=== PATIENT | male | born 1990 | race Caucasian/White ===

== ENCOUNTER 2021-04-23 17:31 | Emergency (ER) | payer MEDICAID, SELFPAY ==
--- NOTE | ~2021-04-23 | XR_ITS ---
EXAMINATION: XR HAND, RIGHT CLINICAL INFORMATION: Laceration injury to hand COMPARISON: None TECHNIQUE: PA, lateral, and oblique views of the right hand. FINDINGS: Soft tissue defect seen along the region of the fifth metacarpal. I do not appreciate any underlying fracture or dislocation. No radiopaque foreign body seen. XR/XR hand RT min 3V IMPRESSION: Soft tissue irregularity near the fifth metacarpal but no acute underlying bony abnormality.
[2021-04-23 17:53] VITALS: BP 138/97; PULSE 69; RESP 16; TEMP 37.3; O2SAT 96; BMI 26.6
[2021-04-23] MEDS: Lidocaine HCl 1 % 20 ML VIAL 10 ML INFILTRATI (18:51)
--- NOTE | 2021-04-23 19:06 | ED_ITS ---
HPI - Wound/Laceration General Chief Complaint: Wound/Laceration Stated Complaint: hand lac Time Seen by Provider: 04/23/21 18:42 Source: patient Mode of arrival: ambulatory Limitations: no limitations History of Present Illness HPI narrative: 30-year-old male presents with right palmar hand laceration that occurred just prior to arrival while he was using a hand powered saw. He pushed on the saw to jam it through the wood and cut his hand. States he is up-to-date on his tetanus. No numbness or tingling, patient has full range of motion of his fingers. Onset (ago): hour(s) (1) Extremity Location: right: hand Place: home Patient tetanus UTD: Yes Context: accidental Associated symptoms: pain Related Data Allergies Allergy/AdvReac Type Severity Reaction Status Date / Time amoxicillin Allergy Unknown hives Verified 04/23/21 18:40 gluten sensitivity Allergy Unknown skin rash Uncoded 08/09/19 00:00 Review of Systems Review of Systems: Constitutional : No Weight loss, No Fever, No Chills, No Night Sweats,No Fatigue, No Malaise ENT/Mouth : No Hearing loss, No Ear Pain, No Nasal Congestion, NoSinus Pain, No Hoarseness, No sore throat, No Rhinorrhea, NoSwallowing Difficulty Eyes: No Eye Pain, No Swelling, No Redness, No Foreign Body, NoDischarge, No Vision Changes Cardiovascular : No Chest Pain, No SOB, No Dyspnea on Exertion, NoOrthopnea, No Edema, No Palpitations Respiratory : No Cough, No Sputum, No Wheezing, No Smoke Exposure, No Dyspnea Gastrointestinal : No Nausea, No Vomiting, No Diarrhea, NoConstipation, No abdominal Pain, No Hematochezia, No Melena Genitourinary : no irregular bleeding, No Dysuria, No UrinaryFrequency, No Hematuria, No Urinary Incontinence, No Urgency, No FlankPain, No Urinary Flow Changes, No Hesitancy Musculoskeletal : No joint pain, No Myalgias, No Joint Swelling Skin :laceration right hand Neuro : No Weakness, No Numbness, No Paresthesias, No Loss ofConsciousness, No Dizziness, No Headache PMFSH Social History Social History Advance Directives: No Advance Directives Information Provided: No Physical Exam Vital Signs: Vital Signs: Last Vital Signs Temp 98.3 F 04/23/21 19:22 Pulse 66 04/23/21 19:22 Resp 16 04/23/21 19:22 BP 128/79 04/23/21 19:22 Pulse Ox 98 04/23/21 19:22 Body Mass Index 26.6 Const: General: cooperative, no acute distress, well developed, alert and awake Nutritional Appearance: well nourished Orientation/consciousness: patient oriented x3 Limitations: no limitations Eyes: Pupils: Equal, round and reactive pupils present Resp: Effort & Inspection: normal respiratory effort and able to speak in complete sentences Auscultation: clear to auscultation bilaterally, no crackles, no rales, no rhonchi and no wheezes Cardio: Rate: regular rate Rhythm: regular rhythm Heart sounds: S1 normal heart sound present and S2 normal heart sound present Skin: Trauma: laceration right palmar palm Neuro: General: patient oriented x3, tone normal and moves all extremities Cranial nerves: Yes Equal, round and reactive pupils present Extrem: Right upper extremity: full ROM, normal capillary refill, no joint e nlargement and Extremity exam: right hand Details: normal capillary refill, neuromotor exam normal, neuromotor exam abnormal, neurosensory exam normal, tendon exam normal Location: of all digits, vascular exam Details: radial pulse present Details: 2+ and normal ROM of fingers; Negative for tendon exam normal; No no cyanosis and no edema Psych: Appearance: grossly normal Affect: normal affect Attitude: cooperative Thought process: Normal thought process present Course Course Course Narrative: 50-year-old male who cut his right palm on a hand saw. Patient is up-to-date on his tetanus, x-ray is negative for radiopaque foreign body or fracture. Sutured patient, placed 7 sutures, gave infection precautions and wound instructions. Procedures Laceration Laceration 1: Site: upper extremity Side (If applicable): right Size (cm): 1.5 Description: linear Depth: simple, single layer Local Anesthetic: lidocaine 1% Amount of anesthesia used (mL): 8 Pre-repair: wound explored, irrigated extensively and deep structures intact Skin layer closed with: nylon Size (cm): 4-0 Number of sutures: 7 Technique: simple, interrupted Discharge Plan Discharge Clinical Impression: Laceration Patient Disposition: Home, Self-Care Instructions: Laceration (ED) Additional Instructions: You have 7 stitches in your right hand. Seven days from now on April 30, I would like you to either come back here, go to Urgent Care, or go to your primary care provider to have the sutures removed. Leave the dressing we put on in till tomorrow evening. He may take the dressing off, washed with soap and water, pat dry, head and put bacitracin on, and redressed with a nonstick dressing. Please do this for the next 5 days. If you have redness, swelling, warmth, pain, or pus come out of your wound, you need to return to be seen. Please alternate Tylenol and ibuprofen for pain. Take 1 or the other every 4 hours. For example, at midnight take 1000 mg of Tylenol, then at 4:00 a.m. take 800 mg ibuprofen, at 8:00 a.m. take 1000 mg of Tylenol, at noon take 800 mg of ibuprofen, at 4:00 p.m. take 1000 mg of Tylenol, at 8:00 p.m. take 800 mg of ibuprofen. Do not exceed 3000 mg of Tylenol in 24 hours. This method is proven to be as effective as an opioid for pain control.
[2021-04-23 19:22] VITALS: BP 128/79; PULSE 66; RESP 16; TEMP 36.8; O2SAT 98
--- NOTE | 2021-04-23 20:26 | PC.NURSE ---
Patient lac was cleaned with saline with bacitracin and non stick applied.
== END 2021-04-23 20:46 | disposition home or self-care (01) ==
PROVIDERS: Emergency Provider Internal Medicine
DX: S61.411A Laceration without foreign body of right hand, initial encounter (principal); W31.2XXA Contact with powered woodworking and forming machines, initial encounter; Y93.89 Activity, other specified; Y92.9 Unspecified place or not applicable; Y99.9 Unspecified external cause status
CPT/HCPCS: 12041; 73130; 99284